=== PATIENT | female | born 1990 | race Caucasian/White ===

== ENCOUNTER 2019-02-05 07:57 | Inpatient (IN) | payer MEDICAID ==
[~2019-02-05] VITALS: Ht 170.2 cm; Wt 110.0 kg
[2019-02-05] MEDS ORDERED: OXYTOCIN 30 UNITS/LR 500 ML IV PRN ×2 (08:30→15:30)
[2019-02-05] MEDS ORDERED: CARBOPROST 250 MCG INJ IM PRN ×2 (08:30→15:30)
[2019-02-05] MEDS ORDERED: CEFAZOLIN 2 GM/50 ML (PMX) 50 ML IVPB SCH (08:30)
[2019-02-05] MEDS ORDERED: OXYTOCIN 30 UNITS/LR 500 ML IV SCH ×2 (08:30→15:04)
[2019-02-05] MEDS ORDERED: MISOPROSTOL 200 MCG TAB PR PRN ×2 (08:30→15:30)
[2019-02-05] MEDS ORDERED: METHYLERGONOVINE 0.2 MG INJ IM PRN ×2 (08:30→15:30)
[2019-02-05 08:32] VITALS: Ht 170.2 cm; Wt 110.0 kg
[2019-02-05 08:34] VITALS: BP 116/70; PULSE 68
[2019-02-05] MEDS: LACTATED RINGER'S 1,000 ML IV SCH ×2 (09:00→09:04)
[2019-02-05] MEDS ORDERED: FENTAnyl 50 MCG/ML VIAL ONE (10:03)
[2019-02-05] MEDS ORDERED: morphine SULFATE/PF (10 MG/10 ML) INJ ONE (10:04)
[2019-02-05] MEDS ORDERED: ONDANSETRON 4 MG INJ ONE (10:05)
[2019-02-05] MEDS ORDERED: OXYTOCIN 10 UNIT INJ ONE (10:05)
[2019-02-05] MEDS ORDERED: PHENYLephrine (100 MCG/ML) 10ML SYG ONE (11:04)
[2019-02-05 13:40] VITALS: BP 136/74; PULSE 56; RESP 17
[2019-02-05 14:40] VITALS: BP 133/70; PULSE 59; RESP 16
[2019-02-05] MEDS: DEXTROSE 5%-LR 1,000 ML IV SCH (15:04)
[2019-02-05] MEDS ORDERED: METHYLERGONOVINE 0.2 MG TAB PO PRN (15:30)
[2019-02-05] MEDS ORDERED: MAGNESIUM HYDROXIDE 30ML CUP PO PRN (15:30)
[2019-02-05] MEDS ORDERED: LANOLIN HPA 1 PKT TOP PRN (15:30)
[2019-02-05 16:00] VITALS: BP 122/64; PULSE 65; RESP 17
[2019-02-05] MEDS ORDERED: DIPHENHYDRAMINE 50 MG INJ IV PRN (17:30)
[2019-02-05] MEDS ORDERED: morphine 4 MG/ML VIAL IV PRN (17:30)
[2019-02-05] MEDS ORDERED: KETOROLAC 30 MG INJ IV PRN (17:30)
[2019-02-05] MEDS ORDERED: NALOXONE (0.4 MG/ML) INJ IV PRN (17:30)
[2019-02-05] MEDS ORDERED: TRIMETHOBENZAMIDE 100 MG/ML VIAL IM PRN (17:30)
[2019-02-05] MEDS ORDERED: ONDANSETRON 4 MG INJ IV PRN (17:30)
[2019-02-05] MEDS ORDERED: morphine 2 MG INJ IV PRN (17:30)
[2019-02-05] MEDS ORDERED: NALBUPHINE HCL (10 MG/1 ML) INJ IV PRN (17:30)
[2019-02-05 19:35] VITALS: BP_SYST 120; BP_SYST 138; BP_DIAS 57; BP_DIAS 67; PULSE 69; PULSE 80; RESP 19
[2019-02-05] MEDS: SENNA/DOCUSATE NA (8.6MG/50MG) TAB PO SCH (20:43)
[2019-02-06] VITALS: BP 130/72; PULSE 78; RESP 18
[2019-02-06] MEDS: DEXTROSE 5%-LR 1,000 ML IV SCH ×3 (01:57→19:15)
[2019-02-06 04:00] VITALS: BP 116/61; PULSE 76; RESP 20
[2019-02-06 08:00] VITALS: BP 133/72; PULSE 73; RESP 18
[2019-02-06] MEDS: ASCORBIC ACID 500 MG TAB PO SCH (09:32)
[2019-02-06] MEDS: FERROUS SULFATE (EC) 325 MG TAB PO SCH (09:33)
[2019-02-06] MEDS: SENNA/DOCUSATE NA (8.6MG/50MG) TAB PO SCH ×2 (09:33→21:12)
[2019-02-06] MEDS ORDERED: HYDROCODONE/APAP (5/325) TAB NGT PRN (11:00)
[2019-02-06] MEDS ORDERED: DIPHTH/TET/ACEL PERTUSS (ADULT) 0.5 ML VIAL IM* ONE (11:00)
[2019-02-06 16:00] VITALS: BP 138/81; PULSE 68; RESP 18
[2019-02-06] MEDS: IBUPROFEN 800 MG TAB PO SCH ×2 (17:24→21:37)
[2019-02-06] MEDS: HYDROCODONE/APAP (5/325) TAB GTB SCH ×2 (17:27→21:37)
[2019-02-06 19:45] VITALS: BP 120/81; PULSE 84; RESP 19
[2019-02-07 04:00] VITALS: BP 138/67; PULSE 77; RESP 20
[2019-02-07] MEDS: IBUPROFEN 800 MG TAB PO SCH ×3 (05:33→21:31)
[2019-02-07] MEDS: HYDROCODONE/APAP (5/325) TAB GTB SCH ×3 (05:34→21:28)
[2019-02-07 08:30] VITALS: BP 120/56; PULSE 68; RESP 18
[2019-02-07] MEDS: ASCORBIC ACID 500 MG TAB PO SCH (09:20)
[2019-02-07] MEDS: SENNA/DOCUSATE NA (8.6MG/50MG) TAB PO SCH ×2 (09:20→21:28)
[2019-02-07] MEDS: FERROUS SULFATE (EC) 325 MG TAB PO SCH (09:20)
[2019-02-07 16:00] VITALS: BP 115/55; PULSE 70; RESP 18
[2019-02-07 19:50] VITALS: BP 119/79; PULSE 72; RESP 19
[2019-02-08 03:40] VITALS: BP 129/70; PULSE 63; RESP 16
[2019-02-08] MEDS: HYDROCODONE/APAP (5/325) TAB GTB SCH ×2 (05:35→14:00)
[2019-02-08] MEDS: IBUPROFEN 800 MG TAB PO SCH ×2 (05:35→14:30)
[2019-02-08 08:30] VITALS: BP 127/64; PULSE 64; RESP 20
[2019-02-08] MEDS ORDERED: MEASLES,MUMPS,RUBELLA VACCINE INJ SC* ONE (09:00)
[2019-02-08] MEDS ORDERED: DIPHTH/TET/ACEL PERTUSS (ADULT) 0.5 ML VIAL IM* ONE (09:00)
[2019-02-08] MEDS: ASCORBIC ACID 500 MG TAB PO SCH (09:46)
[2019-02-08] MEDS: SENNA/DOCUSATE NA (8.6MG/50MG) TAB PO SCH (09:46)
[2019-02-08] MEDS: FERROUS SULFATE (EC) 325 MG TAB PO SCH (09:46)
== END 2019-02-08 15:57 | disposition home or self-care (01) | DRG 788 ==
LOC: L-D 07:57 → MS1 13:32
PROVIDERS: ADMIT Obstetrics & Gynecology; ATTEND Obstetrics & Gynecology
PROC: 3E033VJ Introduction of Other Hormone into Peripheral Vein, Percutaneous Approach (ICD-10-PCS; 2019-02-05)
PROC: 10D00Z1 Extraction of Products of Conception, Low, Open Approach (ICD-10-PCS; principal; 2019-02-05 09:00)
DX: O65.5 Obstructed labor due to abnormality of maternal pelvic organs (principal); O99.214 Obesity complicating childbirth; E66.01 Morbid (severe) obesity due to excess calories; O34.211 Maternal care for low transverse scar from previous cesarean delivery; Z3A.39 39 weeks gestation of pregnancy; Z37.0 Single live birth
CPT/HCPCS: 85025; 85610; 85730; 86592; 86850; 86900; 86901; 87340; 90715; 99464; J0690; J1885; J2274; J2370; J2405; J2590; J3010; J7120; J7121